=== PATIENT | female | born 1965 | race Caucasian/White ===

== ENCOUNTER 2017-04-16 16:21 | Emergency (ER) | payer MEDICARE ==
--- NOTE | 2017-04-16 18:21 | ER Document Report ---
ED Medical Screen (RME) - General Chief Complaint: Chest Pain Stated Complaint: CHEST PAINS Time Seen by Provider: 04/16/17 18:18 Notes: Patient has been experiencing left lower lateral chest and rib pain. She describes the pain as "pressure". She does not recall any kind of unusual activity or falling or injuring herself. Has never had this in the past. At times, she will have some shortness of breath, but no recent respiratory illness. No cough or cold or chest congestion. Denies any nausea or vomiting or diarrhea. Denies any fever or chills. Patient does not smoke cigarettes. Has no history of heart disease. Not diabetic. On no prescription medications. TRAVEL OUTSIDE OF THE [place] IN LAST 30 DAYS: No - Related Data Allergies/Adverse Reactions: No Known Allergies Allergy (Unverified 04/16/17 16:38) Past Medical History Renal/ Medical History: Denies: Hx Peritoneal Dialysis
[2017-04-16 18:42] LABS: ABSOLUTE EOSINOPHILS # (AUTO) 0.2 10^3/uL (0.0-0.6); ABSOLUTE MONOCYTES (AUTO) 0.4 10^3/uL (0.1-1.4); ABSOLUTE NEUT (AUTO) 4.7 10^3/uL (1.7-8.2); BASOPHILS % (AUTO) 0.5 % (0-2); HEMATOCRIT 41.8 % (36.0-47.0); HEMOGLOBIN 14.3 g/dL (12.0-15.5); HGB HCT DIFFERENCE 1.1; MEAN CORPUSCULAR HEMOGLOBIN 30.6 pg (27.0-33.4); MEAN CORPUSCULAR HGB CONC 34.1 g/dL (32.0-36.0); MEAN CORPUSCULAR VOLUME 90 fl (80-97); MONOCYTES % (AUTO) 5.9 % (3-13); RED BLOOD COUNT 4.66 10^6/uL (3.72-5.28); RED CELL DISTRIBUTION WIDTH 13.2 % (11.5-14.0); SEGMENTED NEUTROPHILS % (AUTO) 63.6 % (42-78); WHITE BLOOD COUNT 7.3 10^3/uL (4.0-10.5)
--- NOTE | 2017-04-16 18:56 | RADIOLOGY REPORT (SQ) ---
EXAM DESCRIPTION: CHEST PA/LAT COMPLETED DATE/TIME: 04/16/2017 6:42 pm REASON FOR STUDY: Lower lateral chest pain, worse with movement COMPARISON: None. EXAM PARAMETERS: NUMBER OF VIEWS: two views TECHNIQUE: Digital Frontal and Lateral radiographic views of the chest acquired. RADIATION DOSE: NA LIMITATIONS: none FINDINGS: LUNGS AND PLEURA: No opacities, masses or pneumothorax. No pleural effusion. MEDIASTINUM AND HILAR STRUCTURES: No masses or contour abnormalities. HEART AND VASCULAR STRUCTURES: Heart normal size. No evidence for failure. BONES: No acute findings. HARDWARE: None in the chest. OTHER: No other significant finding. IMPRESSION: NO SIGNIFICANT RADIOGRAPHIC FINDING IN THE CHEST. TECHNICAL DOCUMENTATION: JOB ID: [id number] [employer]- All Rights Reserved
[2017-04-16 18:59] LABS: ALANINE AMINOTRANSFERASE 51 U/L (9-52); ALBUMIN 4.2 g/dL (3.5-5.0); ALKALINE PHOSPHATASE 116 U/L (38-126); ANION GAP 10 (5-19); ASPARTATE AMINO TRANSFERASE 29 U/L (14-36); BILIRUBIN,DIRECT 0.3 mg/dL (0.0-0.4); BILIRUBIN,TOTAL 0.5 mg/dL (0.2-1.3); BLOOD UREA NITROGEN 11 mg/dL (7-20); CALCIUM 9.2 mg/dL (8.4-10.2); CARBON DIOXIDE 29 mmol/L (22-30); CHLORIDE 104 mmol/L (98-107); CREATINE KINASE 85 U/L (30-135); GLUCOSE 95 mg/dL (75-110); POTASSIUM 4.3 mmol/L (3.6-5.0); SODIUM 143.4 mmol/L (137-145); TOTAL PROTEIN 7.3 g/dL (6.3-8.2)
[2017-04-16 19:09] LABS: APPEARANCE,URINE CLEAR; BILIRUBIN,URINE NEGATIVE (NEGATIVE); GLUCOSE, URINE NEGATIVE (NEGATIVE); KETONES,URINE NEGATIVE (NEGATIVE); LEUKOCYTE ESTERASE,URINE NEGATIVE (NEGATIVE); NITRITE,URINE NEGATIVE (NEGATIVE); PROTEIN,URINE NEGATIVE (NEGATIVE); URINE SPECIFIC GRAVITY 1.012; UROBILINOGEN,URINE NEGATIVE mg/dL (<2.0)
[2017-04-16 19:11] LABS: CREATINE KINASE MB 1.08 ng/mL (<4.55); TROPONIN I < 0.012 ng/mL
--- NOTE | 2017-04-16 20:03 | EKG REPORT ---
SEVERITY:- BORDERLINE ECG - SINUS RHYTHM PROBABLE LEFT ATRIAL ABNORMALITY : Confirmed by: Sukhwinder Giron MD 16-Apr-2017 20:02:56
[2017-04-16 20:29] VITALS: BP 136/106
--- NOTE | 2017-04-16 23:22 | ER Document Report ---
ED General - General Chief Complaint: Chest Pain Stated Complaint: CHEST PAINS Time Seen by Provider: 04/16/17 18:18 TRAVEL OUTSIDE OF THE [place] IN LAST 30 DAYS: No - HPI Patient complains to provider of: Chest pain Notes: Patient states intermittent chest pain ongoing for more than a few weeks that radiates to the left shoulder. Patient states there is no exact etiology or timing of chest pain occurs very randomly. States sometimes shortness of breath will be associated with the chest pain. Patient does smoke marijuana denies any alcohol or other drug use. Patient denies any past medical problems does not take any medication. Patient denies any history of trauma. Patient states this morning pain occurred however right now patient is chest pain-free. - Related Data Allergies/Adverse Reactions: No Known Allergies Allergy (Unverified 04/16/17 16:38) Past Medical History - Social History Smoking Status: Current Every Day Smoker - Marijuana Family History: Reviewed & Not Pertinent Patient has homicidal ideation: No Renal/ Medical History: Denies: Hx Peritoneal Dialysis Review of Systems - Review of Systems Constitutional: No symptoms reported EENT: No symptoms reported Cardiovascular: Chest pain Respiratory: No symptoms reported Gastrointestinal: No symptoms reported Genitourinary: No symptoms reported Female Genitourinary: No symptoms reported Musculoskeletal: No symptoms reported Skin: No symptoms reported Hematologic/Lymphatic: No symptoms reported Neurological/Psychological: No symptoms reported -: Yes All other systems reviewed and negative Physical Exam - Vital signs Interpretation: Normal - General General appearance: Appears well, Alert - HEENT Head: Normocephalic, Atraumatic Eyes: Normal Pupils: PERRL - Respiratory Respiratory status: No respiratory distress Chest status: Nontender Breath sounds: Normal Chest palpation: Normal - Cardiovascular Rhythm: Regular Heart sounds: Normal auscultation Murmur: No - Abdominal Inspection: Normal Distension: No distension Bowel sounds: Normal Tenderness: Nontender Organomegaly: No organomegaly - Back Back: Normal, Nontender - Extremities General upper extremity: Normal inspection, Nontender, Normal color, Normal ROM , Normal temperature General lower extremity: Normal inspection, Nontender, Normal color, Normal ROM , Normal temperature, Normal weight bearing. No: Braden's sign - Neurological Neuro grossly intact: Yes Cognition: Normal Orientation: AAOx4 Haywood Coma Scale Eye Opening: Spontaneous Kong Coma Scale Verbal: Oriented Kong Coma Scale Motor: Obeys Commands Haywood Coma Scale Total: 15 Speech: Normal Motor strength normal: LUE, RUE, LLE, RLE Sensory: Normal - Psychological Associated symptoms: Normal affect, Normal mood - Skin Skin Temperature: Warm Skin Moisture: Dry Skin Color: Normal Course - Re-evaluation Re-evalutation: 04/16/17 23:24 Patient was encouraged to follow-up with a local carpenter general and her EKG chest x-ray and troponin are all negative. Patient was encouraged to take aspirin daily. Patient is very insistent that she does not want stay in the hospital therefore agrees to follow-up as outpatient. - Laboratory Result Diagrams: 04/16/17 18:30 04/16/17 18:30 Discharge - Discharge Clinical Impression: Chest pain of unknown etiology Condition: Good Disposition: HOME, SELF-CARE Instructions: Chest Pain of Unclear Cause ([facility]), Aspirin (Cardiac) ([facility]) Additional Instructions: Recommend taking a baby aspirin at least once a day until you follow-up with the carpenter general given. Return to the ER symptoms worsen. Forms: Smoking Cessation Education Referrals: ASHLEIGH WILLS MD [ACTIVE STAFF] - Follow up in 3-5 days
== END 2017-04-16 20:32 | disposition home or self-care (01) ==
LOC: ER 16:21
DX: R07.9 Chest pain, unspecified (principal); M25.512 Pain in left shoulder; F12.90 Cannabis use, unspecified, uncomplicated; F17.200 Nicotine dependence, unspecified, uncomplicated
CPT/HCPCS: 36415; 71020; 80053; 81001; 82550; 82553; 84484; 85025; 85379; 93005; 93010; 99285

== ENCOUNTER 2017-05-06 20:50 | Emergency (ER) | payer MEDICARE ==
--- NOTE | 2017-05-07 00:53 | ER Document Report ---
ED Oral Problem - General Mode of Arrival: Ambulatory Information source: Patient TRAVEL OUTSIDE OF THE [place] IN LAST 30 DAYS: No - General Chief Complaint: Toothache Stated Complaint: POSSIBLE TOOTH INFECTION Time Seen by Provider: 05/06/17 23:42 Notes: Patient is a 51-year-old female who presents to the emergency department today with complaints of dental pain. Patient states she has had bad teeth for quite some time and she needs to have the rest of her teeth pulled. Patient states she has had pain over her left lower teeth for a few days ago it got much worse today prior to arrival. (LEXI JHA) - Related Data Allergies/Adverse Reactions: No Known Allergies Allergy (Unverified 04/16/17 16:38) Past Medical History - General Information source: Patient - Social History Smoking Status: Unknown if Ever Smoked Cigarette use (# per day): No Lives with: Family Family History: Reviewed & Not Pertinent Patient has suicidal ideation: No Patient has homicidal ideation: No Renal/ Medical History: Reports: Hx Kidney Stones - x4. Denies: Hx Peritoneal Dialysis Psychiatric Medical History: Reports: Hx Bipolar Disorder, Hx Depression Past Surgical History: Reports: Hx Hysterectomy, Hx Orthopedic Surgery - lt shoulder, lt hand, lt carpal, Hx Tubal Ligation - Immunizations Hx Diphtheria, Pertussis, Tetanus Vaccination: Yes Review of Systems - Review of Systems Constitutional: denies: Fever EENT: See HPI, Other - dental pain, fractured tooth. denies: Difficulty swallowing Cardiovascular: No symptoms reported Respiratory: No symptoms reported Gastrointestinal: No symptoms reported Genitourinary: No symptoms reported Female Genitourinary: No symptoms reported Musculoskeletal: No symptoms reported Skin: No symptoms reported Hematologic/Lymphatic: No symptoms reported Neurological/Psychological: No symptoms reported -: Yes All other systems reviewed and negative Physical Exam - Vital signs Vitals: Temp Pulse Resp BP Pulse Ox 98 F 78 16 148/90 H 99 05/06/17 20:54 05/06/17 20:54 05/06/17 20:54 05/06/17 20:54 05/06/17 20:54 - Notes Notes: Physical Exam: General: Alert, appears well. HEENT: Normocephalic. Atraumatic. PERRLA. Extraocular movements intact. Oropharynx clear. Poor dentition throughout. Area of several fractured teeth in left lower jaw, erythema and swelling consistent with infection. No airway compromise. Neck: Supple. Respiratory: No respiratory distress. Abdominal: Normal Inspection. No distension. Extremities: Moves all four extremities. Neurological: Cranial nerves II-XII grossly intact bilaterally. Normal cognition. AAOx4. Normal speech. Psychological: Normal affect. Normal Mood. Skin: Warm. Dry. Normal color. (LEXI JHA) Course - Re-evaluation Re-evalutation: 05/07/17 00:56 Patient presents to the emergency department chief complaint of dental pain. Most of her teeth are missing and those that are left on the lower bottom of her mouth are decayed down into the gumline. She said that this lower tooth started bothering her 2 days ago and then she had some swelling to her jaw. Difficulty breathing or swallowing trismus stridor or drooling. Trachea midline neck is supple. No definitive abscess on palpation. Went ahead and gave her Pen-Vee K to go back of pain medication and she is going to follow-up with the dental physician. Discussed reasons for ED return sooner (CHINA GUERRA) - Vital Signs Vital signs: Temp Pulse Resp BP Pulse Ox 98.5 F 77 20 149/97 H 99 05/07/17 01:06 05/07/17 01:06 05/07/17 01:06 05/07/17 01:06 05/07/17 01:06 Discharge - Discharge Clinical Impression: acute dental abscess Condition: Stable Disposition: HOME, SELF-CARE Instructions: Penicillin V K ([facility]), Toothache ([facility]) Prescriptions: Penicillin V Potassium [Penicillin Vk 250 mg Tablet] 250 mg PO Q6 #40 tablet Scribe Attestation: 05/07/17 00:56 I personally performed the services described in the documentation reviewed the documentation recorded by my scribe in my presence and it accurately and completely records my words and actions (CHINA GUERRA) Scribe Documentation - Scribe Written by Hemant:: Hemant Cho, 05/07/2017 0405 acting as scribe for :: Aleksey
[2017-05-07] MEDS ORDERED: PENICILLIN V POTASSIUM 250 MG TABLET PO ONE (00:54)
[2017-05-07] MEDS ORDERED: HYDROCODONE/ACETAMINOPHEN 5-325 MG 6 TAB/DSPK PO PRN (00:55)
[2017-05-07 01:11] VITALS: BP 149/97
== END 2017-05-07 01:11 | disposition home or self-care (01) ==
LOC: ER 20:50
DX: K04.7 Periapical abscess without sinus (principal)
CPT/HCPCS: 99282; A9270 ×2